=== PATIENT | female | born 1945 ===

== ENCOUNTER 2023-08-04 10:16 | Outpatient (CLI) | payer OTHER, SELFPAY | END 2023-08-04 10:17 | disposition home or self-care (01) | LOC: INJ CL 10:17 | PROVIDERS: PCP Internal Medicine; Visit Provider Family Medicine | DX: M54.16 Radiculopathy, lumbar region (principal); M51.36 Other intervertebral disc degeneration, lumbar region | CPT/HCPCS: 62323; J0702; Q9966 ==

== ENCOUNTER 2024-02-16 10:30 | Outpatient (CLI) | payer OTHER, SELFPAY | END 2024-02-16 10:31 | disposition home or self-care (01) | LOC: INJ CL 10:31 | PROVIDERS: PCP Internal Medicine; Visit Provider Family Medicine | DX: M54.16 Radiculopathy, lumbar region (principal); M51.36 Other intervertebral disc degeneration, lumbar region | CPT/HCPCS: 62323; J0702; Q9966 ==

== ENCOUNTER 2024-06-19 18:03 | Inpatient (IN) | payer OTHER, SELFPAY ==
[2024-06-19 18:30] VITALS: PULSE 71; RESP 18; TEMP 36.2; O2SAT 93; BMI 33.3
--- NOTE | 2024-06-19 18:42 | ED_ITS ---
HPI - SOB/Dyspnea General Date Seen: 06/19/24 Chief Complaint: Unspecified Complaint, Adult Stated Complaint: Shortness of breath Time Seen by Provider: 06/19/24 18:13 Source: patient, EMS, RN notes reviewed and old records reviewed Mode of arrival: EMS Limitations: no limitations History of Present Illness HPI Narrative: Patient is a 71-year-old female presents here from [place], by EMS, she has shortness of breath for today, she said this started because the heat at home and she does not have air conditioning in her trailer. Where she lives, she was recently hospitalized she tells me on the through the at [address] in [place] for abdominal pain. They were unable that come off with a diagnosis for this, so today she told them not to take her to [place] in to come to [place]. She denies any fevers chills or sweats associated with this she has had no cold-like symptoms she denies no abdominal pain today, and she has no chest pain with this. She has no cough, but reminds me that she has a history of previous stents done in the past, and transfers from this ER to [facility] and also to [place]. She tells me her legs are swollen but no more than normal, she feels better now that she is here, MD elicited complaint: shortness of breath Pertinent past history: diabetes Onset (ago): hour(s) Context: recent illness Severity: moderate Related Data Home oxygen amount: none Home Medications ?Medication ?Instructions ?Recorded ?Confirmed amlodipine 2.5 mg tablet 2.5 mg PO DAILY 06/19/24 06/19/24 apixaban 5 mg tablet (Eliquis) 5 mg PO BID 06/19/24 06/19/24 atorvastatin 40 mg tablet 40 mg PO QPM 06/19/24 06/19/24 famotidine 20 mg tablet 20 mg PO BID 06/19/24 06/19/24 glipizide 10 mg tablet, extended 10 mg PO DAILY 06/19/24 06/19/24 release 24 hr insulin degludec 200 unit/mL (3 60 unit subcut DAILY 06/19/24 06/19/24 mL) subcutaneous pen (Tresiba FlexTouch U-200 insulin) meclizine 25 mg tablet mg PO 06/19/24 metoprolol tartrate 50 mg tablet 50 mg PO BID 06/19/24 06/19/24 pantoprazole 40 mg tablet,delayed 40 mg PO DAILY 06/19/24 06/19/24 release Allergies Allergy/AdvReac Type Severity Reaction Status Date / Time acetaminophen Allergy Verified 02/16/24 11:07 amlodipine Allergy Verified 02/16/24 11:07 chlorthalidone Allergy Verified 02/16/24 11:07 glimepiride Allergy Verified 02/16/24 11:07 glyburide Allergy Verified 02/16/24 11:07 hydrocodone Allergy Verified 02/16/24 11:07 hydromorphone Allergy Verified 02/16/24 11:07 morphine Allergy Verified 02/16/24 11:07 Review of Systems Status of ROS: Reports: 10 or more systems reviewed and unremarkable except as noted in History and below [facility] Social History Smoking Status: Never smoker Do you use any of these nicotine containing products: None Second hand tobacco smoke exposure: No How often do you have a drink containing alcohol: never How often do you have six or more drinks on one occasion: Never AUDIT-C Alcohol total score: 0 Non-prescribed substance use: denies use service: No Exam Narrative: Exam Narrative: I find her resting and stabilization room 2, she is conversing, but with occasional moans. Her GCS is 15/15 oriented alert oriented x3 pupils equal round reactive to light her TMs are normal oropharynx is normal I am unable to s ee the height of her JVP due to the size of her neck. Her chest however has good air entry with some crackles in the left lower lung rodriguez noted. Abdomen is soft and obese there is no organomegaly, I can feel no extra areas there is no tenderness to palpation. Bowel sounds are normal. She moves all extremities independently and well, with minimal pitting edema bilaterally. Skin reveals no petechiae rashes she is neurologically intact moving all extremities. Const: Vital Signs, click to edit/add: Vital Signs - 24 hr 06/19/24 18:30 06/19/24 18:57 Temperature 97.2 F L Pulse Rate [Left P ulse Oximeter] 71 Respiratory Rate 18 Pulse Oximetry 93 97 Oxygen Delivery Me thod Room Air Documenting provider has reviewed patient's vital signs: yes Course Course ED Course: Patient is positive for COVID, her potassium is also low at 2.5 from her previous admission this was the reason I think she was admitted in [address] I discussed the case with the hospitalist, that we will admitted to the hospital for replenishment of her potassium, other treatments pending. Vital Signs Vital signs: Initial Vital Signs Temperature 97.2 F L 06/19/24 18:30 Temperature Source Temporal Artery Scan 06/19/24 18:30 Pulse Rate 71 06/19/24 18:30 Pulse Rhythm Regular 06/19/24 18:30 Pulse Strength 3+ Normal 06/19/24 18:30 Respiratory Rate 18 06/19/24 18:30 Pulse Oximetry 93 06/19/24 18:30 Oxygen Delivery Method Room Air 06/19/24 18:30 Vital Signs Temperature 97.2 F L 06/19/24 18:30 Pulse Rate 71 06/19/24 18:30 Respiratory Rate 18 06/19/24 18:30 Pulse Oximetry 93 06/19/24 18:30 Oxygen Delivery Method Room Air 06/19/24 18:30 Temperature 97.2 F L 06/19/24 18:30 Pulse Rate 71 06/19/24 18:30 Respiratory Rate 18 06/19/24 18:30 Pulse Oximetry 97 06/19/24 18:57 Oxygen Delivery Method Room Air 06/19/24 18:30 MDM - SOB/Dyspnea MDM Narrative Medical decision making narrative: Life-threatening differential diagnosis includes occluded COPD exacerbation, pulmonary edema, acute coronary syndromes, pulmonary embolism, pneumonia, and pneumothorax. Other differential diagnosis considerations include asthma, bronchitis as well as other etiologies Medical Records Attestation: I reviewed the patient's medical records. Lab Data Attestation: I reviewed the patient's lab results. Labs: Lab Results 06/19/24 06/19/24 06/19/24 Range/Units 18:58 19:20 20:08 WBC 12.29 H (4.50-11.00) K/uL RBC 4.25 (4.00-5.20) m/uL Hgb 11.6 L (12.0-16.0) gm/dL Hct 35.8 (33.0-51.0) % MCV 84 (80-100) fL MCH 27 (26-34) pg MCHC 32 (32-36) gm/dL RDW Coeff of Tee 12.5 (11.5-15.5) % Plt Count 288 (140-440) K/uL Neut % (Auto) 73.0 H (42.0-72.0) % Lymph % (Auto) 18.3 L (20-44) % [place] % (Auto) 7.6 (0.0-11.0) % Eos % (Auto) 0.7 (0.0-7.0) % Baso % (Auto) 0.2 (0.0-3.0) % Neut # (Auto) 9.00 H (1.7-7.0) K/uL Lymph # (Auto) 2.20 (0.90-2.90) K/uL [place] # (Auto) 0.90 (0.00-0.90) K/UL Eos # (Auto) 0.10 (0.00-0.50) K/uL Baso # (Auto) 0.00 (0.00-0.30) K/uL Abs Immat Gran (auto) 0.00 (0.00-0.30) K/uL Imm/Tot Granulo (auto) 0.2 % INR 1.06 (0.91-1.10) APTT 30 (23-33) Seconds D-Dimer Quant (PE/DVT) 0.97 H (0.00-0.50) ug/ml Sodium 138 (135-149) mmol/L Potassium 2.5 L* (3.6-5.1) mmol/L Chloride 102 (96-114) mmol/L Carbon Dioxide 27 (20-32) mmol/L Anion Gap 9 (7-15) mEq/L BUN 11 (7-30) mg/dL Creatinine 0.6 (0.5-1.5) mg/dL Estimated Creat Clear 41.72 Estimated GFR 92 ml/min Glucose 151 H (60-115) mg/dL Calcium 8.5 (8.4-10.6) mg/dL C-Reactive Protein 0.8 (0.5-1.0) mg/dL NT-Pro-B Natriuret Pep 689 pg/mL Urine Color Yellow (Yellow) Urine Appearance Clear (Clear) Urine pH 7.0 (5.0-8.5) Ur Specific [place] 1.010 (1.000-1.030) Urine Protein Negative (Negative) Urine Glucose (UA) Negative (Negative) Urine Ketones Negative (Negative) Urine Blood Negative (Negative) Urine Nitrite Negative (Negative) Urine Bilirubin Negative (Negative) Urine Urobilinogen 0.2 (0.2-1.0) Ur Leukocyte Esterase Negative (Negative) Urine RBC 0-2 (0-2) Urine WBC 0-2 (0-5) Ur Squamous Epith Cells Moderate A (None-Few) Urine Bacteria Few A (None) SARS-CoV-2 (PCR) POSITIVE SARS-CoV-2 A (Negative) Influenza Type A (PCR) Negative PCR FLU A (Negative) Influenza Type B (PCR) Negative PCR FLU B (Negative) RSV (PCR) Negative PCR RSV (Negative) Lab Acknowledgement Test Added POC Troponin I 0.03 (0.01-0.04) ng/ml Imaging Data Chest x-ray: Attestation: I have reviewed the pertinent imaging results. My impression: Chronic changes nothing acute ECG Data Attestation: I personally reviewed and interpreted this ECG as follows: ECG interpretation date: 06/19/24 Interpretation: EKG shows normal sinus rhythm, with the T-wave inversion noted laterally. Ventricular rate is 71, QT 418 and QTC 454. Discharge Plan Discharge Clinical Impression: COVID, Acute hypokalemia, Shortness of breath Patient Disposition: Admitted As Observation Condition: Stable
[2024-06-19 18:57] VITALS: O2SAT 97
--- NOTE | 2024-06-19 18:57 | CRLHL7_ITS ---
For Patients: As a result of the Cures Act, medical imaging exams and procedure reports are released immediately into your electronic medical record. You may view this report before your referring provider. If you have questions, please contact your health care provider. INDICATION: Short of breath with cough. Chest pain. TECHNIQUE: Two view chest. FINDINGS: The lungs are clear. The heart, mediastinum and pulmonary vessels are of normal size. Atherosclerosis of the aortic knob. There is no evidence of pleural disease. No fracture. Degenerative changes in the thoracic spine. IMPRESSION: Negative chest. Dictated by Tenzin Antoine MD @ 06/19/2024 8:54:28 PM (Electronically Signed)
[2024-06-19 19:35] LABS: Basophils Percent Auto 0.2 % (0.0-3.0); Eosinophils Percent Auto 0.7 % (0.0-7.0); Hematocrit 35.8 % (33.0-51.0); Hemoglobin* 11.6 gm/dL (12.0-16.0); Immature Granulocytes Pct Auto 0.2 %; Lymphocytes Percent Auto 18.3 % (20-44); Mean Corpuscular HGB Conc 32 gm/dL (32-36); Mean Corpuscular Hemoglobin 27 pg (26-34); Mean Corpuscular Volume 84 fL (80-100); Monocytes Percent Auto 7.6 % (0.0-11.0); Platelet Count* 288 K/uL (140-440); RDW Coefficient of Variation % 12.5 % (11.5-15.5); Red Blood Count 4.25 m/uL (4.00-5.20); White Blood Count* 12.29 K/uL (4.50-11.00)
[2024-06-19 19:37] LABS: Troponin, Point-of-Care* 0.03 ng/ml (0.01-0.04)
[2024-06-19 19:39] LABS: Slide Review Reflex No
[2024-06-19 19:48] LABS: Chloride* 102 mmol/L (96-114); Sodium* 138 mmol/L (135-149)
[2024-06-19 19:50] LABS: Creatinine* 0.6 mg/dL (0.5-1.5); Est. Creatinine Clearance* 41.72; Estimated Glomerular Filt Rate 92 ml/min
[2024-06-19 19:51] LABS: Anion Gap 9 mEq/L (7-15); Blood Urea Nitrogen* 11 mg/dL (7-30); Carbon Dioxide* 27 mmol/L (20-32); Glucose* 151 mg/dL (60-115)
[2024-06-19 19:52] LABS: Calcium* 8.5 mg/dL (8.4-10.6)
[2024-06-19 19:54] LABS: C Reactive Protein* 0.8 mg/dL (0.5-1.0)
[2024-06-19 19:55] LABS: INR 1.06 (0.91-1.10); Prothrombin Time 14.4 Seconds
[2024-06-19 19:56] LABS: Partial Thromboplastin Time* 30 Seconds (23-33)
[2024-06-19 19:58] LABS: D Dimer Quantitative* 0.97 ug/ml (0.00-0.50)
[2024-06-19 20:00] VITALS: BP 161/78; PULSE 70; RESP 16; O2SAT 98
[2024-06-19 20:02] LABS: NT Pro B Type NatriureticPept* 689 pg/mL
[2024-06-19 20:03] LABS: Potassium* 2.5 mmol/L (3.6-5.1)
[2024-06-19 20:07] LABS: Appearance Urine Clear (Clear); Bilirubin Urine Negative (Negative); Blood Urine Negative (Negative); Color Urine Yellow (Yellow); Glucose Urine Negative (Negative); Ketones Urine Negative (Negative); Leukocyte Esterase Urine Negative (Negative); Nitrite Urine Negative (Negative); Protein Urine Negative (Negative); Urobilinogen Urine 0.2 (0.2-1.0)
[2024-06-19 20:25] LABS: PCR FLU A Negative PCR FLU A (Negative); PCR FLU B Negative PCR FLU B (Negative); PCR RSV Negative PCR RSV (Negative); SARS PCR* POSITIVE SARS-CoV-2 (Negative)
[2024-06-19 20:25] LABS: Bacteria Urine Few; RBC Urine 0-2 (0-2); Squamous Epithelial Cell Urine Moderate (None-Few); WBC Urine 0-2 (0-5)
--- NOTE | 2024-06-19 20:45 | CRLHL7_ITS ---
For Patients: As a result of the Century Cures Act, medical imaging exams and procedure reports are released immediately into your electronic medical record. You may view this report before your referring provider. If you have questions, please contact your health care provider. INDICATION: Shortness of breath. TECHNIQUE: CT chest PE was acquired with 95 cc Isovue 370 IV contrast. COMPARISON: Same day chest radiographs. FINDINGS: Heart and vasculature: Contrast opacification of the pulmonary arterial tree is adequate. No sign of pulmonary embolism. Heart size is normal. Thoracic aorta and pulmonary artery are normal in caliber. Aortic, coronary, and mitral annular calcifications. Severe atherosclerotic calcifications of the proximal left subclavian artery. Lungs and pleura: Right basilar atelectasis/scarring. Otherwise no acute infiltrates. 6 mm left lower lobe perifissural nodule (series 5, image 115). No pleural effusions, pleural thickening, or pneumothorax. Lymph nodes/mediastinum: No mediastinal, hilar, or axillary adenopathy. Atrophic/absent thyroid gland. Chest wall: No masses. Upper abdomen: Large geographic areas of fatty infiltration in the inferior right hepatic lobe. Left hepatic lobe cyst. Status post cholecystectomy. Bones: Degenerative changes. IMPRESSION: 1. No evidence of pulmonary embolism. 2. No acute infiltrates. 3. 6 mm left lower lobe perifissural nodule. Please see below for follow-up guidelines. SOCIETY GUIDELINES - SOLID NODULES: SINGLE LOW RISK - nodule less than 6 mm: No routine follow-up. - nodule 6-8 mm: CT at 6-12 months, then consider CT at 18-24 months. - nodule greater than 8 mm: Consider CT at 3 months, PET/CT or tissue sampling. SINGLE HIGH RISK - nodule less than 6 mm: Optional CT at 12 months. - nodule 6-8 mm: CT at 6-12 months, then CT at 18-24 months. - nodule greater than 8 mm: Consider CT at 3 months, PET/CT or tissue sampling. Please note that all CT scans at this facility use dose modulation, iterative reconstruction, and/or weight-based dosing when appropriate to reduce radiation dose to as low as reasonably achievable. Dictated by Travis Carballo MD @ 06/19/2024 11:53:14 PM (Electronically Signed)
--- NOTE | 2024-06-19 20:46 | PM.IMHP1 ---
Hospitalist- H&P: HPI History of Present Illness Date Seen: 06/19/24 Chief complaint: Shortness of breath Narrative: Lottie Kirby is a 79 year old female who presented to the ER by EMS for dyspnea. She was feeling weak and like her breathing was heavy and attributed this to the heat and humidity. She lives with her in a mobile home, and their air conditioning recently stopped working. No associated chest pain. Notably hospitalized in [place] from 06/03-06/06 for abdominal pain. During that stay, noted to have no acute abnormalities on CT (moderate stool burden and incidental 0.7cm low density pancreatic tail lesion noted), + FOBT (Eliquis held) + E Coli UTI (treated with 3 day course of Ceftriaxone). Also hypokalemic and hypomagnesemic, replaced and both numbers were normal upon discharge. She has not continued potassium or magnesium supplementation since hospital stay. Continues to have intermittent RLQ pain, none during our visit today. Upon discharge from [facility] on 06/06, her Eliquis was not restarted, recommended f/u with PCP to discuss colonoscopy. She is on Eliquis for a history of paroxysmal atrial fibrillation. ER Course and Findings: - K of 2.5, Mg of 1.3 - Hgb 11.6 (was 9.6 on 06/06/24), normal BUN - COVID positive - elevated D-Dimer, CT PE ordered, results pending Upon arrival to the floor, Lottie is feeling close to baseline without dyspnea. She is 99-100% on RA during our visit. Histories updated below. PCP is Dr. Cabrera at the [facility] in [place]. Review of Systems Narrative: - poor appetite at home, thinks she has some weight loss (weight at D1 was between 88-91kg) - BRBPR x1 earlier this week (h/o hemorrhoids), painless - has been constipated, took a laxative yesterday with + relief today PFSH PFS Medical History (Updated 06/20/24 @ 00:00 by Hillary Keith MD) Lumbar spinal stenosis ?M48.061 - Spinal stenosis, lumbar region without neurogenic claudication (ICD-10) CVA (cerebral vascular accident) ?I63.9 - Cerebral infarction, unspecified (ICD-10) H. pylori infection ?A04.8 - Other specified bacterial intestinal infections (ICD-10) Normocytic anemia ?D64.9 - Anemia, unspecified (ICD-10) Insulin dependent diabetes mellitus Paroxysmal atrial fibrillation ?I48.0 - Paroxysmal atrial fibrillation (ICD-10) Coronary artery disease ?I25.10 - Atherosclerotic heart disease of [place] coronary artery without angina pectoris (ICD-10) Essential hypertension ?I10 - Essential (primary) hypertension (ICD-10) Surgical History S/P MICHELLE (total abdominal hysterectomy) ?Z90.710 - Acquired absence of both cervix and uterus (ICD-10) H/O section ?Z98.891 - History of uterine scar from previous surgery (ICD-10) Hx of cholecystectomy ?Z90.49 - Acquired absence of other specified parts of digestive tract (ICD-10) Normal esophagogastroduodenoscopy (EGD) ?Z01.89 - Encounter for other specified special examinations (ICD-10) Social History Narrative: Retired, lives with in [place]. Nonsmoker, no concerning ETOH use, requests Full Code status. What is your current living situation?: I presently have a place to live Problems where you live: carbon monoxide detectors missing or not working Problems where you live details: educated pt to get carbon monoxide detectors In the past 12 months, utilities in danger of being shut off: no In past 12 months, lack of transportation kept you from medical appts, meetings, work, or getting things needed for daily living: no In the past 12 mos, have been you worried that your food would run out before you had money to buy more?: never true In the past 12 mos, the food you bought just didn't last and you didn't have money to buy more?: never true Smoking Status: Never smoker Do you use any of these nicotine containing products: None Second hand tobacco smoke exposure: No How often do you have a drink containing alcohol: never How often do you have six or more drinks on one occasion: Never AUDIT-C Alcohol total score: 0 Non-prescribed substance use: denies use Caffeine: Yes How often does anyone, including family, friends and others, physically hurt you: never How often does anyone, including family, friends and others, insult or talk down to you: never How often does anyone, including family, friends and others, threaten you with harm: never How often does anyone, including family, friends and others, scream or curse at you: never service: No Meds Home Medications and Allergies Home Medications ?Medication ?Instructions ?Recorded ?Confirmed ?Type amlodipine 2.5 mg tablet 2.5 mg PO DAILY 06/19/24 06/19/24 History apixaban 5 mg tablet (Eliquis) 5 mg PO BID 06/19/24 06/19/24 History atorvastatin 40 mg tablet 40 mg PO QPM 06/19/24 06/19/24 History duloxetine 60 mg capsule,delayed 60 mg PO DAILY 06/19/24 06/19/24 History release famotidine 20 mg tablet 20 mg PO BID 06/19/24 06/19/24 History glipizide 10 mg tablet, extended 10 mg PO DAILY 06/19/24 06/19/24 History release 24 hr insulin degludec 200 unit/mL (3 60 unit subcut DAILY 06/19/24 06/19/24 History mL) subcutaneous pen (Tresiba FlexTouch U-200 insulin) insulin regular human 100 unit/mL 10 - 12 unit subcut 3XD 06/19/24 06/19/24 History (3 mL) subcutaneous pen (Novolin R FlexPen) levothyroxine 100 mcg tablet 100 mcg PO QAM 06/19/24 06/19/24 History meclizine 25 mg tablet mg PO 06/19/24 History metoprolol tartrate 50 mg tablet 50 mg PO BID 06/19/24 06/19/24 History pantoprazole 40 mg tablet,delayed 40 mg PO DAILY 06/19/24 06/19/24 History release valsartan 160 mg tablet 160 mg PO DAILY 06/19/24 06/19/24 History Allergies Allergy/AdvReac Type Severity Reaction Status Date / Time acetaminophen Allergy Verified 02/16/24 11:07 amlodipine Allergy Verified 02/16/24 11:07 chlorthalidone Allergy Verified 02/16/24 11:07 glimepiride Allergy Verified 02/16/24 11:07 glyburide Allergy Verified 02/16/24 11:07 hydrocodone Allergy Verified 02/16/24 11:07 hydromorphone Allergy Verified 02/16/24 11:07 morphine Allergy Verified 02/16/24 11:07 Exam Narrative: Exam Narrative: GEN: Alert and oriented, laying comfortably in bed and speaking in full sentences. Does not appear toxic, no dyspnea HEENT: Some missing teeth, no evidence of active infection,EOMIs bilaterally, no scleral icterus CV: RRR, No concerning murmurs R: LCTA bilaterally, no wheezing Ab: Tolerates palpation without rebound or guarding Ext: wwp, no concerning edema Skin: Scattered bruising on upper extremities, 4-5 flat hyperpigmented ovoid lesions on LLE (no pain or pruritus, patient has noted them for approximately 4 months) Neuro: No focal deficits, no resting tremor Psych: Appropriate Const: Vital Signs, click to edit/add: Vital Signs - 24 hr 06/19/24 18:30 06/19/24 18:57 Temperature 97.2 F L Pulse Rate [Left P ulse Oximeter] 71 Respiratory Rate 18 Pulse Oximetry 93 97 Oxygen Delivery Me thod Room Air Hospitalist - H&P: Result Labs Labs: Short CBC 06/19/24 Range/Units 19:20 WBC 12.29 H (4.50-11.00) K/uL Hgb 11.6 L (12.0-16.0) gm/dL Hct 35.8 (33.0-51.0) % Plt Count 288 (140-440) K/uL BMP 06/19/24 19:20 Sodium 138 Potassium 2.5 L* Chloride 102 Carbon Dioxide 27 BUN 11 Creatinine 0.6 Glucose 151 H Calcium 8.5 Urine 06/19/24 Range/Units 18:58 Urine Color Yellow (Yellow) Urine Appearance Clear (Clear) Urine pH 7.0 (5.0-8.5) Ur Specific [place] 1.010 (1.000-1.030) Urine Protein Negative (Negative) Urine Glucose (UA) Negative (Negative) Assessment and Plan Assessment and plan (1) Acute hypokalemia: Problem comment: - 2.5 on 06/19/24, has associated hypomagnesemia - recurrent; was 2.7 on 06/03/24 (admitted to D[facility]), normalized and was 3.6 on discharge 06/06/24 - ddx: nutritional, hyperaldosteronism, unlikely to be iatrogenic - replace and follow Status: Acute (2) COVID: Problem comment: - patient currently asymptomatic - close monitoring, defer COVID-specific therapies at this time Status: Acute (3) Shortness of breath: Problem comment: - resolved upon arrival to the floor, likely related to heat/humidity and lack of A/C this weekend Status: Acute (4) Paroxysmal atrial fibrillation: Problem comment: - rate controlled on Metoprolol - previously anticoagulated on Eliquis (held since 06/03 during hospitalization at D1, + FOBT) - restart Eliquis 06/19 given COVID diagnosis (CT PE results pending) Status: Acute (5) Insulin dependent diabetes mellitus: Problem comment: - A1C 8.6 on 03/25/24 - continue home insulin and oral medications + SSI - diabetic retinopathy Status: Acute (6) Coronary artery disease: Problem comment: - NSTEMI in 2019 per [facility] chart - negative troponin x2 in ED, will follow on telemetry - last TTE 08/2023: Final Impressions: 1. Normal left ventricular size, normal wall thickness, normal global systolic function, calculated EF of 65 %. 2. Right ventricular cavity size is normal, global systolic RV function is normal. 3. Mildly enlarged left atrium. 4. The aortic valve is sclerotic, no stenosis and trivial regurgitation. 5. The mitral valve is moderate mitral annular calcification (posterior), mild to moderate mitral regurgitation. 6. Tricuspid valve is tethered. 7. Moderate tricuspid regurgitation. 8. Mildly increased estimated pulmonary pressures by tricuspid regurgitation velocity and right atrial pressure (30 mmHg plus RAP). 9. No pericardial effusion. 10. Color Doppler suggests a possible PFO. Status: Acute (7) Weight loss: Problem comment: - weight at D1 earlier this month was 88-91kg - patient also endorses decreased appetite and has recurrent hypokalemia and hypomagnesemia - Nutrition consult Status: Acute (8) Pancreatic abnormality: Problem comment: - incidental 0.7cm low-density pancreatic tail lesion noted on imaging 06/03/24 at hospital, unclear if related to other symptoms - outpatient f/u Status: Acute (9) Lung nodule: Problem comment: - 6mm, L lower lobe perifissural nodule - same size and location noted in 2020 per [facility] chart review Status: Acute Plan - per above
[2024-06-19 21:00] VITALS: BP 121/67; PULSE 67; RESP 20; O2SAT 98
[2024-06-19] MEDS: ACETAMINOPHEN 500 MG TABLET 1000 MG PO (21:00)
[2024-06-19 21:04] LABS: Magnesium* 1.3 mg/dL (1.5-2.6)
[2024-06-19] MEDS: 0.9 % SODIUM CHLORIDE 250 ml 250 ML IV (21:41)
[2024-06-19] MEDS: POTASSIUM BICARB 25 MEQ EFFERVESCENT TAB 50 MEQ PO (21:41)
[2024-06-19] MEDS: MAGNESIUM IV 2 GM/50 ML PIGGYBACK IVPB (21:42)
[2024-06-19 22:13] VITALS: BP 127/78; PULSE 75; RESP 20; TEMP 36.8; O2SAT 100; O2SAT 99; BMI 34.2
[2024-06-19] MEDS: POTASSIUM BICARB 25 MEQ EFFERVESCENT TAB PO (23:22)
[2024-06-20] VITALS (12 sets, daily range): BP systolic 93–131; BP diastolic 45–66; PULSE 76–164; RESP 16–22; TEMP 36.7–37; O2SAT 87–100; BMI 33.8
[2024-06-20] MEDS: POTASSIUM BICARB 25 MEQ EFFERVESCENT TAB PO (01:17)
[2024-06-20] MEDS: ACETAMINOPHEN 325 MG TABLET 650 MG PO ×2 (01:46→17:40)
--- NOTE | 2024-06-20 05:51 | PC.NURSE ---
End of shift note ([id number]): Patient admitted from at 2153 from ED. On contact precautions for Covid-19. Pleasant, alert and oriented. Ambulated to bathroom with rolling walker, gait belt and assist of one. Short of breath after returning from bathroom. O2 sats within normal limits.?PRN Tylenol given at 0146 for c/o headache effective. ?
[2024-06-20 06:27] LABS: Basophils Absolute Auto 0.02 K/uL (0.00-0.30); Basophils Percent Auto 0.2 % (0.0-3.0); Eosinophils Percent Auto 1.1 % (0.0-7.0); Hemoglobin* 10.6 gm/dL (12.0-16.0); Immature Granulocytes Abs Auto 0.09 K/uL (0.00-0.30); Lymphocytes Absolute Auto 2.41 K/uL (0.90-2.90); Lymphocytes Percent Auto 25.8 % (20-44); Mean Corpuscular HGB Conc 32 gm/dL (32-36); Mean Corpuscular Hemoglobin 27 pg (26-34); Mean Corpuscular Volume 85 fL (80-100); Monocytes Percent Auto 7.7 % (0.0-11.0); Neutrophils Absolute Auto 6.01 K/uL (1.7-7.0); Neutrophils Percent Auto 64.2 % (42.0-72.0); Platelet Count* 248 K/uL (140-440); Red Blood Count 3.87 m/uL (4.00-5.20); White Blood Count* 9.35 K/uL (4.50-11.00)
[2024-06-20 06:28] LABS: Slide Review Reflex No
[2024-06-20] MEDS: LEVOTHYROXINE 100 MCG TABLET PO (06:43)
[2024-06-20 06:47] LABS: Albumin* 3.5 g/dL (3.3-5.0); Chloride* 100 mmol/L (96-114)
[2024-06-20 06:48] LABS: Potassium* 3.7 mmol/L (3.6-5.1); Sodium* 137 mmol/L (135-149)
[2024-06-20 06:50] LABS: Alanine Aminotransferase* 12 U/L (4-35); Alkaline Phosphatase* 102 U/L (40-150); Anion Gap 3 mEq/L (7-15); Aspartate Amino Transferase* 28 U/L (12-35); Bilirubin Total* 0.8 mg/dL (0.1-1.5); Blood Urea Nitrogen* 10 mg/dL (7-30); Calcium* 8.4 mg/dL (8.4-10.6); Carbon Dioxide* 34 mmol/L (20-32); Creatinine* 0.7 mg/dL (0.5-1.5); Est. Creatinine Clearance* 36.67; Estimated Glomerular Filt Rate 88 ml/min; Glucose* 142 mg/dL (60-115); Total Protein* 6.6 g/dL (6.0-8.3)
[2024-06-20 06:51] LABS: Magnesium* 1.9 mg/dL (1.5-2.6)
[2024-06-20] MEDS: INSULIN REGULAR, HUMAN 100 UNIT/ML VIAL 10 UNIT SUBCUT ×3 (08:30→17:41)
[2024-06-20] MEDS: glipiZIDE XL 5 MG TAB 10 MG PO (09:38)
[2024-06-20] MEDS: DULOXETINE 30 MG CAPSULE DR 60 MG PO (09:38)
[2024-06-20] MEDS: APIXABAN 5 MG TABLET PO ×2 (09:39→21:19)
[2024-06-20] MEDS: FAMOTIDINE 20 MG TABLET PO ×2 (09:39→21:19)
[2024-06-20] MEDS: OMEPRAZOLE 20 MG CAPSULE DR 40 MG PO (09:39)
[2024-06-20] MEDS: SODIUM CHLORIDE 0.9 % (FLUSH) 10 ML SYRINGE 5 ML IVF ×2 (09:43→21:20)
--- NOTE | 2024-06-20 11:17 | P.IMPN_ITS ---
Progress Note: A&P Assessment and plan (1) COVID: Problem details: - patient currently asymptomatic - close monitoring, defer COVID-specific therapies at this time - patient improved but still weak as of 06/20 - therapies and supportive care - continue Eliquis from [facility] SPECIALIST Status: Acute (2) Shortness of breath: Problem details: - resolved upon arrival to the floor, likely related to heat/humidity and lack of A/C this weekend - not hypoxic Status: Acute (3) Acute hypokalemia: Problem details: - 2.5 on 06/19/24, has associated hypomagnesemia - recurrent; was 2.7 on 06/03/24 (admitted to D1), normalized and was 3.6 on discharge 06/06/24 - ddx: nutritional, hyperaldosteronism, unlikely to be iatrogenic - replace and follow - RESOLVED AM OF 06/20 Status: Acute (4) Hypomagnesemia: Problem details: RESOLVED 06/20/24 but continuing oral replacement Status: Acute (5) Insulin dependent diabetes mellitus: Problem details: - A1C 8.6 on 03/25/24 - continue home insulin (home Tresiba 60 units and ordered Lantus 30 units (pt has been euglycemic) and oral medications + SSI - diabetic retinopathy Status: Acute (6) Paroxysmal atrial fibrillation: Problem details: - rate controlled on Metoprolol (with soft pressures and rate controlled - changed from 50 BID to 25 BID, may need a bump if tachycardia presents) - previously anticoagulated on Eliquis (held since 06/03 during hospitalization at D1, + FOBT) - restart Eliquis 06/19 given COVID diagnosis Status: Acute (7) Essential hypertension: Problem details: -holding valsartan and amlodipine (soft pressures currently) -ECG reviewed Status: Acute (8) Coronary artery disease: Problem details: - NSTEMI in 2019 per [facility] chart - negative troponin x2 in ED, will follow on telemetry - last TTE 08/2023: Final Impressions: 1. Normal left ventricular size, normal wall thickness, normal global systolic function, calculated EF of 65 %. 2. Right ventricular cavity size is normal, global systolic RV function is normal. 3. Mildly enlarged left atrium. 4. The aortic valve is sclerotic, no stenosis and trivial regurgitation. 5. The mitral valve is moderate mitral annular calcification (posterior), mild to moderate mitral regurgitation. 6. Tricuspid valve is tethered. 7. Moderate tricuspid regurgitation. 8. Mildly increased estimated pulmonary pressures by tricuspid regurgitation velocity and right atrial pressure (30 mmHg plus RAP). 9. No pericardial effusion. 10. Color Doppler suggests a possible PFO. Status: Acute (9) Weight loss: Problem details: - weight at D1 earlier this month was 88-91kg - AM OF 06/20 84KG - patient also endorses decreased appetite and has recurrent hypokalemia and hypomagnesemia - Nutrition consult - but can complete workup as an outpatient. Status: Acute Subjective Date Seen: 06/20/24 Interval history: Daily Progress Note - Hospital Medicine Day #: 2 CC: Weakness, dyspnea, positive COVID Covid Day #2 Symptom Day #2 24 HOUR UPDATE: Notable Labs, Micro, Rads, Interventions: white count is improved hemoglobin 10.6 potassium is now normal Magnesium is now normal Objective: Vitals: see above Lungs: Clear. Cardiac: S1S2. Disposition/Potential discharge - Today I spent 50minutes seeing the patient, reviewing Expanse and EPIC notes/diagnostics, discussing the care plan with our care time that includes social work, PT/OT, pharmacy, RT, senior care and documenting my impressions and plan in the medical record. Exam Const: Vital Signs, click to edit/add: Vital Signs - 24 hr 06/19/24 18:30 06/19/24 18:57 06/19/24 20:00 Temperature 97.2 F L Pulse Rate Pulse Rate [Left P ulse Oximeter] 71 70 Pulse Rate [Pulse Oximeter] Respiratory Rate 18 16 Blood Pressure [Le ft Arm] Blood Pressure [Ri ght Upper Arm] 161/78 H Pulse Oximetry 93 97 98 Oxygen Delivery Me thod Room Air Room Air 06/19/24 21:00 06/19/24 22:13 06/19/24 22:13 Temperature 98.3 F Pulse Rate Pulse Rate [Left P ulse Oximeter] 67 Pulse Rate [Pulse Oximeter] 75 Respiratory Rate 20 20 Blood Pressure [Le ft Arm] 127/78 Blood Pressure [Ri ght Upper Arm] 121/67 Pulse Oximetry 98 99 100 Oxygen Delivery Nm thod Room Air Room Air Room Air 06/20/24 00:20 06/20/24 01:58 06/20/24 08:13 Temperature 98.0 F 98.3 F Pulse Rate 78 Pulse Rate [Left P ulse Oximeter] Pulse Rate [Pulse Oximeter] 76 82 Respiratory Rate 17 22 Blood Pressure [Le ft Arm] 98/66 102/64 Blood Pressure [Ri ght Upper Arm] Pulse Oximetry 100 97 Oxygen Delivery Me thod Room Air Room Air 06/20/24 08:13 06/20/24 10:00 Temperature Pulse Rate 82 Pulse Rate [Left P ulse Oximeter] Pulse Rate [Pulse Oximeter] 82 Respiratory Rate 22 Blood Pressure [Le ft Arm] Blood Pressure [Ri ght Upper Arm] Pulse Oximetry Oxygen Delivery Me thod Labs Labs: Laboratory Results - last 24 hr 06/19/24 06/19/24 06/19/24 18:58 19:20 20:08 WBC 12.29 H RBC 4.25 Hgb 11.6 L Hct 35.8 MCV 84 MCH 27 MCHC 32 RDW Coeff of Tee 12.5 Plt Count 288 Neut % (Auto) 73.0 H Lymph % (Auto) 18.3 L [place] % (Auto) 7.6 Eos % (Auto) 0.7 Baso % (Auto) 0.2 Neut # (Auto) 9.00 H Lymph # (Auto) 2.20 [place] # (Auto) 0.90 Eos # (Auto) 0.10 Baso # (Auto) 0.00 Abs Immat Gran (auto) 0.00 Imm/Tot Granulo (auto) 0.2 INR 1.06 APTT 30 D-Dimer Quant (PE/DVT) 0.97 H Sodium 138 Potassium 2.5 L* Chloride 102 Carbon Dioxide 27 Anion Gap 9 BUN 11 Creatinine 0.6 Estimated Creat Clear 41.72 Estimated GFR 92 Glucose 151 H Calcium 8.5 Magnesium 1.3 L Total Bilirubin AST ALT Alkaline Phosphatase C-Reactive Protein 0.8 NT-Pro-B Natriuret Pep 689 Total Protein Albumin Urine Color Yellow Urine Appearance Clear Urine pH 7.0 Ur Specific [place] 1.010 Urine Protein Negative Urine Glucose (UA) Negative Urine Ketones Negative Urine Blood Negative Urine Nitrite Negative Urine Bilirubin Negative Urine Urobilinogen 0.2 Ur Leukocyte Esterase Negative Urine RBC 0-2 Urine WBC 0-2 Ur Squamous Epith Cells Moderate A Urine Bacteria Few A SARS-CoV-2 (PCR) POSITIVE SARS-CoV-2 A Influenza Type A (PCR) Negative PCR FLU A Influenza Type B (PCR) Negative PCR FLU B RSV (PCR) Negative PCR RSV Lab Acknowledgement Test Added POC Troponin I 0.03 06/20/24 06:15 WBC 9.35 RBC 3.87 L Hgb 10.6 L Hct 33.0 MCV 85 MCH 27 MCHC 32 RDW Coeff of Tee 13.0 Plt Count 248 Neut % (Auto) 64.2 Lymph % (Auto) 25.8 [place] % (Auto) 7.7 Eos % (Auto) 1.1 Baso % (Auto) 0.2 Neut # (Auto) 6.01 Lymph # (Auto) 2.41 [place] # (Auto) 0.70 Eos # (Auto) 0.10 Baso # (Auto) 0.02 Abs Immat Gran (auto) 0.09 Imm/Tot Granulo (auto) 1.0 INR APTT D-Dimer Quant (PE/DVT) Sodium 137 Potassium 3.7 Chloride 100 Carbon Dioxide 34 H Anion Gap 3 L BUN 10 Creatinine 0.7 Estimated Creat Clear 36.67 Estimated GFR 88 Glucose 142 H Calcium 8.4 Magnesium 1.9 Total Bilirubin 0.8 AST 28 ALT 12 Alkaline Phosphatase 102 C-Reactive Protein NT-Pro-B Natriuret Pep Total Protein 6.6 Albumin 3.5 Urine Color Urine Appearance Urine pH Ur Specific [place] Urine Protein Urine Glucose (UA) Urine Ketones Urine Blood Urine Nitrite Urine Bilirubin Urine Urobilinogen Ur Leukocyte Esterase Urine RBC Urine WBC Ur Squamous Epith Cells Urine Bacteria SARS-CoV-2 (PCR) Influenza Type A (PCR) Influenza Type B (PCR) RSV (PCR) Lab Acknowledgement POC Troponin I
[2024-06-20] MEDS: MAGNESIUM OXIDE 400 MG TABLET 800 MG PO ×2 (12:13→21:20)
[2024-06-20] MEDS: POTASSIUM CHLORIDE 10 MEQ CAPSULE ER 20 MEQ PO ×2 (12:13→17:40)
[2024-06-20] MEDS: ATORVASTATIN CALCIUM 40 MG TABLET PO (17:40)
--- NOTE | 2024-06-20 18:20 | PC.NURSE ---
End of Shift: Patient pleasant and cooperative. Patient vitally stable, lungs clear, BS WNL, IV SL and intact. Patient denies pain but complains of discomfort with other staff when activity is required, tylenol given once. Patient SBA/walker. Patient tolerating regular diet and urinating well. Patient lacks motivation and only wants to stay in bed, she has been up to the chair x2 for a short time, but has also refused sitting in the chair. Patient sits to the side of bed for meals. Patient's blood sugars 117, 110, 86.
[2024-06-20] MEDS: METOPROLOL TARTRATE 1 MG/ML inj 5 MG IVP (20:19)
--- NOTE | 2024-06-20 20:47 | PM.EN ---
Chart Event Note Date Seen: 06/20/24 Chart Event Note: Lottie was found to have irregular tachycardia on evening VS, noted to be in a fib with RVR (h/o this), rate 170-180. Given IV Metoprolol x1 without significant change, will initiate scheduled oral Diltiazem, consider Diltiazem gtt if ineffective. Moved to CCU status.
[2024-06-20] MEDS: INSULIN GLARGINE,HUM.REC.ANLOG 100 UNIT/ML INSULN.PEN 30 UNIT SUBCUT (21:49)
[2024-06-20 21:52] LABS: Chloride* 100 mmol/L (96-114); Sodium* 136 mmol/L (135-149)
[2024-06-20 21:53] LABS: Potassium* 4.4 mmol/L (3.6-5.1)
[2024-06-20] MEDS: 0.9 % SODIUM CHLORIDE 500 ML 500 ML IV (21:54)
[2024-06-20 21:55] LABS: Anion Gap 5 mEq/L (7-15); Carbon Dioxide* 31 mmol/L (20-32); Creatinine* 0.7 mg/dL (0.5-1.5); Est. Creatinine Clearance* 36.67; Estimated Glomerular Filt Rate 88 ml/min
[2024-06-20 21:56] LABS: Blood Urea Nitrogen* 10 mg/dL (7-30); Calcium* 8.5 mg/dL (8.4-10.6); Glucose* 114 mg/dL (60-115); Magnesium* 1.9 mg/dL (1.5-2.6)
[2024-06-20] MEDS: dilTIAZem 5 MG/ML inj 10 MG IVP (21:57)
[2024-06-20] MEDS: OXYCODONE 5 MG TABLET PO (21:58)
[2024-06-20] MEDS: dilTIAZem HCL 125 MG in 0.9 % SODIUM CHLORIDE 100 ml 100 ML IVPB (23:18)
[2024-06-21] VITALS (9 sets, daily range): BP systolic 90–136; BP diastolic 53–83; PULSE 73–87; RESP 18; TEMP 36.3–36.7; O2SAT 94–98
[2024-06-21 01:08] LABS: Thyroid Stimulating Hormone* 0.353 uIU/mL (0.270-4.20)
[2024-06-21] MEDS: 0.9 % SODIUM CHLORIDE 500 ML 500 ML IV (04:36)
[2024-06-21] MEDS: LEVOTHYROXINE 100 MCG TABLET PO (06:18)
[2024-06-21 06:43] LABS: Hematocrit 32.3 % (33.0-51.0); Hemoglobin* 10.1 gm/dL (12.0-16.0); Mean Corpuscular HGB Conc 31 gm/dL (32-36); Mean Corpuscular Hemoglobin 27 pg (26-34); Mean Corpuscular Volume 88 fL (80-100); Platelet Count* 239 K/uL (140-440); Red Blood Count 3.68 m/uL (4.00-5.20); White Blood Count* 6.79 K/uL (4.50-11.00)
[2024-06-21 06:52] LABS: Slide Review Reflex No
[2024-06-21 07:04] LABS: Chloride* 104 mmol/L (96-114); Potassium* 3.9 mmol/L (3.6-5.1); Sodium* 137 mmol/L (135-149)
[2024-06-21 07:07] LABS: Creatinine* 0.7 mg/dL (0.5-1.5); Est. Creatinine Clearance* 36.67; Estimated Glomerular Filt Rate 88 ml/min
[2024-06-21 07:08] LABS: Anion Gap 0 mEq/L (7-15); Blood Urea Nitrogen* 9 mg/dL (7-30); Calcium* 8.3 mg/dL (8.4-10.6); Carbon Dioxide* 33 mmol/L (20-32); Glucose* 92 mg/dL (60-115); Magnesium* 1.9 mg/dL (1.5-2.6)
--- NOTE | 2024-06-21 07:26 | PC.NURSE ---
Addendum entered by Aleyda Pop RN 06/21/24 07:39: Diltiazem drip decreased at 0251 per MD order and stopped at 0351 per MD order. Pt remains in NSR. Pt has had no c/o chest pain noted throughout the shift. Pt needed several reminders throughout the shift to try to keep R arm straight to have bolus fluids infused and reminder to keep legs uncrossed when assessing B/P. Original Note: End of shift note [id number]: Pt alert & oriented x 4 and able to make needs known. She was noted to be both continent and incontinent of bladder. Pt transferring with SBA using walker and gait belt. PRN Oxycodone given last evening for pt c/o 4/10 back pain. Pt started on Diltiazem drip per order last evening due to A fib with RVR. Pt is no longer on Diltiazem drip per [place] as pt has been in NSR since decreasing Diltiazem rate per order at 0251. Pt noted to be hypotensive after Diltiazem drip stopped with B/P of 97/53- 500 mL NS administered per order. Pt noted to be symptomatic when hypotensive as she c/o dizziness with transferring- beside commode used for safety when noting c/o dizziness. Pt also received 500 mL NS bolus last evening before being started on Diltiazem drip per order. Pt has been denying cough when asked and has been afebrile throughout the shift. IV to R AC patent and SL.
[2024-06-21] MEDS: POTASSIUM CHLORIDE 10 MEQ CAPSULE ER 20 MEQ PO (09:31)
[2024-06-21] MEDS: APIXABAN 5 MG TABLET PO (09:32)
[2024-06-21] MEDS: ACETAMINOPHEN 325 MG TABLET 650 MG PO (09:32)
[2024-06-21] MEDS: DULOXETINE 30 MG CAPSULE DR 60 MG PO (09:32)
[2024-06-21] MEDS: MAGNESIUM OXIDE 400 MG TABLET 800 MG PO (09:32)
[2024-06-21] MEDS: OMEPRAZOLE 20 MG CAPSULE DR 40 MG PO (09:32)
[2024-06-21] MEDS: glipiZIDE XL 5 MG TAB 10 MG PO (09:33)
[2024-06-21] MEDS: METOPROLOL TARTRATE 50 MG TABLET 25 MG PO (09:33)
[2024-06-21] MEDS: FAMOTIDINE 20 MG TABLET PO (09:34)
[2024-06-21] MEDS: INSULIN REGULAR, HUMAN 100 UNIT/ML VIAL 10 UNIT SUBCUT (09:34)
[2024-06-21] MEDS: SODIUM CHLORIDE 0.9 % (FLUSH) 10 ML SYRINGE 5 ML IVF (09:38)
--- NOTE | 2024-06-21 12:14 | PM.DS1 ---
DS: Providers Provider Date Seen: 06/21/24 Date of admission: 06/19/24 22:00 Primary care physician: Pooja Cabrera MD Admitting Clinician: Hillary Keith MD Consults: 06/19/24 22:35 Consult to Physical Therapy [CONS] Routine Comment: Reason(s) for PT Consult:: Evaluate and Treat Any Restrictions?:: No Restrictions 06/19/24 22:37 Consult to Occupational Therapy [CONS] Routine Comment: Reason(s) for OT Consult:: Evaluate and Treat Any Restrictions?:: No Restrictions 06/19/24 22:51 Consult to Nutrition [CONS] Routine Comment: Reason for consult:: Miscellaneous Comment: recent weight loss, poor appetite, hypokalemia 06/19/24 22:54 Consult to [facility]or Coordinator [CONS] Routine Comment: Reason for Consult:: Social Service Consult 06/19/24 23:08 Consult to Physical Therapy [CONS] Routine Comment: Reason(s) for PT Consult:: Evaluate and Treat Any Restrictions?:: Unknown Attending Physician on discharge: Hillary Keith MD DS: Diagnosis Discharge Diagnosis (1) COVID: Status: Acute Problem details: - patient was only symptomatic for a few hours with dyspnea - alleviated with access to air conditioning and bedrest - COVID-specific therapies deferred - continue Eliquis from [facility] TECHNICIAN - discharged to care of . no hypoxia. mask wearing discussed for the next 5 days. (2) Shortness of breath: Status: Acute Problem details: - resolved upon arrival to the floor, likely related to heat/humidity and lack of A/C this weekend - not hypoxic (3) Acute hypokalemia: Status: Acute Problem details: - 2.5 on 06/19/24, has associated hypomagnesemia - recurrent; was 2.7 on 06/03/24 (admitted to D1), normalized and was 3.6 on discharge 06/06/24 - ddx: nutritional, hyperaldosteronism, unlikely to be iatrogenic - replace and follow - RESOLVED AM OF 06/20 (4) Hypomagnesemia: Status: Acute Problem details: RESOLVED 06/20/24 but continuing oral replacement (5) Insulin dependent diabetes mellitus: Status: Acute Problem details: - A1C 8.6 on 03/25/24 - continue home insulin (home Tresiba 60 units and ordered Lantus 30 units (pt has been euglycemic) and oral medications + SSI - diabetic retinopathy (6) Paroxysmal atrial fibrillation: Status: Acute Problem details: - brief episode of RVR - resolved (back to sinus) within a few hours spontaneously (need IV bump of metoprolol, oral dilt and dilt drip) - rate controlled on Metoprolol (with soft pressures and rate controlled - initially changed from 50 BID to 25 BID and this may have inadvertently caused the RVR) - previously anticoagulated on Eliquis (held since 06/03 during hospitalization at D1, + FOBT) - restart Eliquis 06/19 given COVID diagnosis DS: Summary Hospital Course Hospital Course: FINAL DIAGNOSIS/FOLLOW UP ISSUES: 1. Covid 19. admitted for weakness/dyspnea. no specific covid medications. support care. 2. AFIB RVR - known paroxysmal atrial fibrillation on metoprolol and oral anticoagulation. RVR lasted a few hours requiring oral diltiazem, IV metoprolol and IV diltiazem. At discharge she was back in sinus with normal rate. BRIEF HOSPITAL COURSE: Patient was admitted for 2 days. Synopsis of acute inpatient issues are outlined above. Chronic medical conditions with notable findings outlined above. She felt much improved upon arrival to the floor. This may have been as much attributed to access to air conditioning as much as anything else. We held on any COVID specific therapies as she was not hypoxic. She was moving at her baseline within 24 hours. Other than the brief episode of AFib RVR she did quite well. She was discharged in the care of her for continued convalescence. DISCHARGE MEDICATIONS: See Reconciled list - SIGNIFICANT CHANGES: No specific changes or additions. Specific instructions to the patient and follow-up are outlined below. REVIEW OF SYSTEMS No new chest pain or dyspnea Pain controlled No voiding difficulties Tolerating diet challenge PHYSICAL EXAM: CONSTITUTIONAL: Generally weak and moves slowly. This is her baseline. VITAL SIGNS: see record. HEENT: Normocephalic, atraumatic. PERRL, EOMI, conjunctivae pink, no scleral icterus. Ears and nose externally normal. Pharynx normal. NECK: No JVD. No carotid bruit, no thyromegaly, no adenopathy. CHEST: Clear to auscultation bilaterally. HEART: S1 and S2 normal. Edema ABDOMEN: Soft, nontender. Normal bowel sounds. MUSCULOSKELETAL: No gross joint deformity or swelling. NEURO: Cranial nerves intact. Grossly intact. No asymmetric findings. SKIN: No rashes, petechiae, concerning changes PSYCHIATRIC: Mood euthymic. DISPOSITION: Home with . Time spent on discharge 37 minutes. Status at Discharge Functional status at discharge: wheelchair bound Overall status at discharge: patient is progressing back to baseline Time Spent with Patient Time attestation: Total time spent providing and/or coordinating discharge services: Time spent: Greater than 30 minutes Exam Const: Vital Signs, click to edit/add: Vital Signs - 24 hr 06/20/24 15:00 06/20/24 15:01 06/20/24 19:00 Temperature 98.5 F 98.4 F Pulse Rate Pulse Rate [Pulse Oximeter] 88 88 114 H Respiratory Rate 16 16 16 Blood Pressure [Le ft Arm] 131/58 L 101/45 L Pulse Oximetry 95 95 Oxygen Delivery Me thod Room Air Room Air Oxygen Flow Rate 06/20/24 20:30 06/20/24 23:00 06/20/24 23:00 Temperature 98.2 F Pulse Rate Pulse Rate [Pulse Oximeter] 143 H 143 H Respiratory Rate 18 18 Blood Pressure [Le ft Arm] 93/48 L 101/64 Pulse Oximetry 93 Oxygen Delivery Me thod Room Air Oxygen Flow Rate 06/20/24 23:35 06/20/24 23:50 06/21/24 03:00 Temperature Pulse Rate 164 H Pulse Rate [Pulse Oximeter] 75 Respiratory Rate 18 Blood Pressure [Le ft Arm] Pulse Oximetry 87 L Oxygen Delivery Me thod Room Air Oxygen Flow Rate 06/21/24 04:00 06/21/24 06:00 06/21/24 06:55 Temperature 98.0 F 97.3 F L Pulse Rate 87 Pulse Rate [Pulse Oximeter] 79 75 Respiratory Rate 18 18 Blood Pressure [Le ft Arm] 97/53 L 90/60 Pulse Oximetry 97 98 Oxygen Delivery Me thod Nasal Cannula Nasal Cannula Oxygen Flow Rate 1 1 06/21/24 07:00 06/21/24 07:30 06/21/24 07:56 Temperature 98.0 F Pulse Rate Pulse Rate [Pulse Oximeter] 78 77 77 Respiratory Rate 18 18 18 Blood Pressure [Le ft Arm] 104/66 108/65 Pulse Oximetry 98 98 Oxygen Delivery Me thod Nasal Cannula Room Air Oxygen Flow Rate 1 06/21/24 09:45 06/21/24 11:57 Temperature 98.1 F Pulse Rate Pulse Rate [Pulse Oximeter] 73 77 Respiratory Rate 18 18 Blood Pressure [Le ft Arm] 136/83 107/60 Pulse Oximetry 98 94 Oxygen Delivery Me thod Room Air Room Air Oxygen Flow Rate DS: Data Data Completed and Pending Labs on day of discharge: Labs from last 24 hours 06/21/24 06/21/24 06/20/24 06:13 00:03 21:30 WBC 6.79 RBC 3.68 L Hgb 10.1 L Hct 32.3 L MCV 88 MCH 27 MCHC 31 L Plt Count 239 Sodium 137 136 Potassium 3.9 4.4 Chloride 104 100 Carbon Dioxide 33 H 31 Anion Gap 0 L 5 L BUN 9 10 Creatinine 0.7 0.7 Estimated Creat Clear 36.67 36.67 Estimated GFR 88 88 Glucose 92 114 Calcium 8.3 L 8.5 Magnesium 1.9 1.9 TSH Lab Acknowledgement Test Added 06/20/24 19:24 WBC RBC Hgb Hct MCV MCH MCHC Plt Count Sodium Potassium Chloride Carbon Dioxide Anion Gap BUN Creatinine Estimated Creat Clear Estimated GFR Glucose Calcium Magnesium TSH 0.353 Lab Acknowledgement Preliminary micro results at discharge 06/19/24 18:58 Urine Culture - Preliminary Urine,Clean Catch Gram negative domenic Gram negative domenic#2 Discharge Plan Discharge Disposition: Home, Self-Care Date of Admission: 06/19/24 22:00 Attending Provider on Discharge: Irma Nation Primary Care Provider: Pooja Cabrera Condition: Stable Anticipated Discharge Date/Time: 06/21/24 11:00 Discharge Medications: Continued atorvastatin 40 mg tablet 40 mg PO QPM glipizide 10 mg tablet extended release 24hr 10 mg PO DAILY amlodipine 2.5 mg tablet 2.5 mg PO DAILY famotidine 20 mg tablet 20 mg PO BID meclizine 25 mg tablet PO pantoprazole 40 mg tablet,delayed release (DR/EC) 40 mg PO DAILY metoprolol tartrate 50 mg tablet 50 mg PO BID Eliquis 5 mg tablet 5 mg PO BID insulin degludec [Tresiba FlexTouch U-200] 200 unit/mL (3 mL) insulin pen 60 unit subcut DAILY levothyroxine 100 mcg tablet 100 mcg PO QAM valsartan 160 mg tablet 160 mg PO DAILY Novolin R FlexPen 100 unit/mL (3 mL) insulin pen 10 - 12 unit subcut 3XD duloxetine 60 mg capsule,delayed release(DR/EC) 60 mg PO DAILY Discharge Orders: Discharge Order (Routine); Ordered 06/21/24 Ordered By: Irma Nation Patient Education: COVID-19 (Coronavirus Disease 2019) (DC), COVID-19 and Chronic Health Conditions (DC) Activity Level: Activity as Tolerated Discharge Diet: Regular Follow Up Appointments: Pooja Cabrera MD [Primary Care Provider] - 07/05/24 11:10 am ([facility] for follow-up.) Forms: [employer] Info Instructions
--- NOTE | 2024-06-21 15:55 | PC.NURSE ---
End of shift. pt has been pleasant. chronic pain she got po Tylenol. she is on covid precautions. PT and OT worked with her. tele showed NSR. she is eating and drinking and voiding. she is incontinent on and off and has a brief on. SL was d/c intact. BS 80's ./ went over discharge packet with pt. pt went over and signed personal belonging sheet. all belongings returned to pt. she got a w/c ride out with covid precautions.
== END 2024-06-21 14:00 | disposition home or self-care (01) | DRG 179 ==
LOC: ED 20:27 → MEDSURG 22:00
PROVIDERS: Family Medicine; Admitting Provider Family Medicine; Emergency Provider Family Medicine; PCP Internal Medicine; Visit Provider Family Medicine
DX: U07.1 COVID-19 (principal); R06.02 Shortness of breath; E87.6 Hypokalemia; E83.42 Hypomagnesemia; E11.319 Type 2 diabetes mellitus with unspecified diabetic retinopathy without macular edema; Z79.4 Long term (current) use of insulin; I48.0 Paroxysmal atrial fibrillation; Z79.01 Long term (current) use of anticoagulants; I10 Essential (primary) hypertension; I25.10 Atherosclerotic heart disease of native coronary artery without angina pectoris; R63.4 Abnormal weight loss; Z68.34 Body mass index [BMI] 34.0-34.9, adult; K86.9 Disease of pancreas, unspecified; R91.1 Solitary pulmonary nodule; Z86.73 Personal history of transient ischemic attack (TIA), and cerebral infarction without residual deficits
CPT/HCPCS: 36415; 71046; 71275; 80048; 80053; 81001; 82962; 83735; 83880; 84443; 84484; 85025; 85027; 85379; 85610; 85730; 86140; 87086; 87186; 87631; 93005; 94761; 97116; 97162; 97165; 97530; 97535; 99284; 99285; A9270; J1815; J3475; J3490; J7030; J7050; Q9967

== ENCOUNTER 2024-09-06 09:54 | Outpatient (CLI) | payer OTHER, SELFPAY | END 2024-09-06 09:55 | disposition home or self-care (01) | PROVIDERS: PCP Internal Medicine; Visit Provider Family Medicine | DX: M54.16 Radiculopathy, lumbar region (principal); M48.062 Spinal stenosis, lumbar region with neurogenic claudication | CPT/HCPCS: 62323; J0702; Q9966 ==